=== PATIENT | female | born 1990 | race Caucasian/White ===

== ENCOUNTER 2017-12-24 07:12 | Emergency (ER) | payer OTHER, MEDICAID ==
[~2017-12-24] VITALS: Ht 160 cm; Wt 72.6 kg
[~2017-12-24 07:12] MED LIST: ? CHOLESTEROL MED PO; AFRIN15 ML NS; AUGMENTIN 875875 MG PO; CIPROFLOXACIN500 M1 PO; CYMBALTA60 MG; DIFLUCAN150 MG PO; DOXYCYCLINE 10100 MG PO; ESTROGEN; FLAGYL500 MG PO; HYDROCODON-ACE1 EAC7; HYDROCODONE-AP1 EAC6 PO; IBUPROFEN 800800 M1; IBUPROFEN 800800 M1 PO; KEFLEX500 M1; LOVASTAT20; NAPROSYN500 MG; NAPROSYN500 MG PO; NOHOMEMEDICATIONS; NORCO 5-325 TA1 EACH PO; ONDANSETRON HCL4 M2 PO; PERCOCET; PERCOCET 5-3251 EACH PO; PREDNISONE 20 M20 M1 PO; PROMETHAZINE-D120 ML PO; PYRIDIUM200 MG PO; TORADOL 10 MG T10 MG PO; TRICOR145 MG; VALIUM5 MG; VICODIN 5-5001 EACH; ZOFRAN 4 MG ORAL4 MG PO; ZOFRAN ODT4 MG PO; ZOFRAN4 MG PO
[2017-12-24] MEDS ORDERED: FLEXERIL PO (07:35)
[2017-12-24] MEDS ORDERED: NORCO 5-325 TA1 EACH PO (07:35)
[2017-12-24] MEDS ORDERED: IBUPROFEN 800800 M1 PO (07:35)
[2017-12-24 07:58] VITALS: BP 103/70
== END 2017-12-24 07:58 | disposition home or self-care (01) ==
LOC: M.ERS 07:12
DX: S46.812A Strain of other muscles, fascia and tendons at shoulder and upper arm level, left arm, initial encounter (principal); F17.210 Nicotine dependence, cigarettes, uncomplicated; X58.XXXA Exposure to other specified factors, initial encounter; Y93.89 Activity, other specified; Y92.89 Other specified places as the place of occurrence of the external cause; Y99.8 Other external cause status

== ENCOUNTER 2018-03-07 09:09 | Emergency (ER) | payer OTHER, MEDICAID ==
[~2018-03-07] VITALS: Ht 160 cm; Wt 63.5 kg
[~2018-03-07 09:09] MED LIST changes: +FLEXERIL PO
[2018-03-07 09:40] LABS: URINE BLOOD NEGATIVE (Negative); URINE CLARITY CLEAR; URINE COLOR YELLOW; URINE GLUCOSE-RANDOM NEGATIVE (Negative); URINE KETONES NEGATIVE (Negative); URINE LEUKOCYTES NEGATIVE (Negative); URINE NITRITE NEGATIVE (Negative); URINE PROTEIN TRACE (Negative); URINE SPECIFIC GRAVITY >= 1.030 (1.005-1.030); URINE UROBILINOGEN 0.2 E.U./dl (0.2-1.0)
[2018-03-07 09:45] LABS: ICTOTEST (BILI CONFIRMATORY) Negative (Negative); URINE BILIRUBIN 1+ (Negative)
[2018-03-07 09:47] LABS: ABSOLUTE BASOPHILS 0.1 thou/uL (0.0-0.2); ABSOLUTE EOSINOPHILS 0.1 thou/uL (0.0-0.7); ABSOLUTE LYMPHOCYTES 1.8 thou/uL (0.8-5.3); ABSOLUTE MONOCYTES 0.5 thou/uL (0.0-1.2); BASOPHILS 0.8 %; EOSINOPHILS 1.8 %; HEMATOCRIT 41.8 % (37.0-47.0); HEMOGLOBIN 14.2 gm/dL (12.0-15.0); LYMPHOCYTES 23.8 %; MCH 30.3 pg (26.0-34.0); MONOCYTES 6.7 %; MPV 8.3 fl. (7.2-11.1); NUCLEATED RBCS 0 /100WBC; PLATELET COUNT* 239 thou/uL (150-400); POLYS 66.9 %; RBC 4.69 mil/uL (4.20-5.00); RDW-CV 13.3 % (10.5-14.5); WBC 7.5 thou/uL (4.0-11.0)
[2018-03-07 09:53] LABS: AMP/METHAMP Negative (Negative); BARBITURATES Negative (Negative); BENZODIAZEPINES Negative (Negative); COCAINE Negative (Negative); METHADONE Negative (Negative); OPIATES Negative (Negative); PCP Negative (Negative); THC POSITIVE (Negative)
[2018-03-07 09:56] LABS: CALCIUM 9.1 mg/dL (8.5-10.1); POTASSIUM 3.6 mmol/L (3.5-5.1)
[2018-03-07 10:01] LABS: ALBUMIN 3.8 g/dL (3.4-5.0); TOTAL BILIRUBIN 0.2 mg/dL (<0.1-1.0); TOTAL PROTEIN 6.9 g/dL (6.4-8.2)
[2018-03-07] MEDS ORDERED: ZOFRAN4 MG PO (11:01)
[2018-03-07] MEDS ORDERED: ULTRAM 50MG TAB50 MG PO (11:07)
[2018-03-07 11:26] VITALS: BP 108/73
== END 2018-03-07 11:28 | disposition home or self-care (01) ==
LOC: M.ERS 09:09
PROVIDERS: Family Medicine
DX: R10.11 Right upper quadrant pain (principal); Z85.41 Personal history of malignant neoplasm of cervix uteri; Z90.49 Acquired absence of other specified parts of digestive tract; Z90.710 Acquired absence of both cervix and uterus; Z86.14 Personal history of Methicillin resistant Staphylococcus aureus infection

== ENCOUNTER 2018-05-26 10:06 | Emergency (ER) | payer OTHER, MEDICAID ==
[~2018-05-26] VITALS: Ht 160 cm; Wt 59.0 kg
[~2018-05-26 10:06] MED LIST changes: +ULTRAM 50MG TAB50 MG PO
[2018-05-26] MEDS ORDERED: PROZAC20 MG PO (10:17)
[2018-05-26] MEDS ORDERED: HYDROXYZINE HCL25 M1 PO (10:18)
[2018-05-26] MEDS ORDERED: PROAIR HFA8.5 GM INH (11:25)
[2018-05-26] MEDS ORDERED: TESSALON PERLE100 MG PO (11:25)
[2018-05-26 11:33] VITALS: BP 118/74
== END 2018-05-26 11:34 | disposition home or self-care (01) ==
LOC: M.ERS 10:06
DX: J98.8 Other specified respiratory disorders (principal); B97.89 Other viral agents as the cause of diseases classified elsewhere; Z85.41 Personal history of malignant neoplasm of cervix uteri; F17.210 Nicotine dependence, cigarettes, uncomplicated; Z86.14 Personal history of Methicillin resistant Staphylococcus aureus infection

== ENCOUNTER 2018-08-17 03:19 | Emergency (ER) | payer OTHER, MEDICAID ==
[~2018-08-17] VITALS: Ht 160 cm; Wt 56.7 kg
[~2018-08-17 03:19] MED LIST changes: +HYDROXYZINE HCL25 M1 PO; +PROAIR HFA8.5 GM INH; +PROZAC20 MG PO; +TESSALON PERLE100 MG PO
[2018-08-17 04:04] LABS: ABSOLUTE EOSINOPHILS 0.3 thou/uL (0.0-0.7); ABSOLUTE LYMPHOCYTES 2.8 thou/uL (0.8-5.3); ABSOLUTE MONOCYTES 0.7 thou/uL (0.0-1.2); ABSOLUTE NEUTROPHILS 3.6 thou/uL (1.6-8.1); BASOPHILS 0.6 %; EOSINOPHILS 3.7 %; HEMATOCRIT 37.8 % (37.0-47.0); HEMOGLOBIN 13.1 gm/dL (12.0-15.0); MCH 30.7 pg (26.0-34.0); MCHC 34.6 g/dL (28.0-37.0); MCV 88.6 fL (80.0-100.0); MONOCYTES 9.8 %; MPV 7.4 fl. (7.2-11.1); NUCLEATED RBCS 0 /100WBC; PLATELET COUNT* 180 thou/uL (150-400); POLYS 47.9 %; RBC 4.26 mil/uL (4.20-5.00); RDW-CV 12.7 % (10.5-14.5); WBC 7.5 thou/uL (4.0-11.0)
[2018-08-17 04:10] LABS: ANION GAP 7 mmol/L (7-16); BUN 10 mg/dL (7-18); CALCIUM 8.5 mg/dL (8.5-10.1); CHLORIDE 103 mmol/L (98-107); CO2 29 mmol/L (21-32); CREATININE 1.1 mg/dL (0.6-1.3); GLUCOSE 94 mg/dL (70-99); POTASSIUM 3.7 mmol/L (3.5-5.1); SODIUM 139 mmol/L (136-145)
[2018-08-17 04:14] LABS: PROTIME 10.7 Seconds (9.20-11.50)
[2018-08-17 04:20] LABS: ALBUMIN 2.8 g/dL (3.4-5.0); ALKALINE PHOSPHATASE 200 U/L (46-116); LIPASE 113 U/L (73-393); NT-PRO BRAIN NAT PEPTIDE 28 pg/mL (<300); SGOT 40 U/L (15-37); SGPT 46 U/L (30-65); TOTAL BILIRUBIN 0.2 mg/dL (<0.1-1.0); TROPONIN-I LEVEL <0.06 ng/mL (<0.06)
[2018-08-17] MEDS ORDERED: IBUPROFEN 800800 MG PO (05:00)
[2018-08-17] MEDS ORDERED: TUSSIONEX PENN115 ML PO (05:00)
[2018-08-17] MEDS ORDERED: AZITHROMYCIN 2250 MG PO (05:00)
[2018-08-17 05:06] VITALS: BP 103/67
--- NOTE | 2018-08-17 16:17 | EKG ---
[place] [address] ELECTROCARDIOGRAM REPORT Name: EMERSON RENEE Room: [facility]#: [id number] Admission: 08/17/18 Attend Phys: Discharge: 08/17/18 Date of : [birth year] Report #: [id number] THIS REPORT FOR: //name// [facility] ED Test Date: 2018-08-17 Test Time: 03:24:22 Pat Name: EMERSON RENEE Department: Room: Gender: F Heart Coordinator: FAITH : 1990 Requested By: Anthony Silverman Order Number: [id number] MD: Jesus Parikh Measurements Intervals [place] Rate: 99 P: 54 AR: 138 QRS: 56 QRSD: 84 T: 32 QT: 352 QTc: 452 Interpretive Statements Sinus rhythm Borderline T abnormalities, inferior leads Baseline wander in lead(s) II,III,aVL,aVF,V3,V4,V5,V6 No previous ECG available for comparison Electronically Signed On 08-17-2018 16:17:50 CHILD'S NURSE by Jesus Parikh [email or web address] <ELECTRONICALLY SIGNED> By: Jesus Parikh MD, [facility] 08/17/18 1617 [id number] Jesus Parikh MD, [facility] /EPI
== END 2018-08-17 05:09 | disposition home or self-care (01) ==
LOC: M.ERS 03:19
PROVIDERS: Emergency Medicine
DX: J40 Bronchitis, not specified as acute or chronic (principal); F41.9 Anxiety disorder, unspecified; Z85.41 Personal history of malignant neoplasm of cervix uteri; Z90.49 Acquired absence of other specified parts of digestive tract; Z90.710 Acquired absence of both cervix and uterus; F17.210 Nicotine dependence, cigarettes, uncomplicated

== ENCOUNTER 2019-03-26 14:08 | Emergency (ER) | payer OTHER ==
[~2019-03-26] VITALS: Ht 160 cm; Wt 50.8 kg
[~2019-03-26 14:08] MED LIST changes: +AZITHROMYCIN 2250 MG PO; +IBUPROFEN 800800 MG PO; +TUSSIONEX PENN115 ML PO
[2019-03-26] MEDS ORDERED: NORCO 5-325 TA1 EAC1 PO (15:00)
[2019-03-26 15:18] VITALS: BP 108/81
== END 2019-03-26 15:19 | disposition home or self-care (01) ==
LOC: M.ERS 14:08
DX: S93.402A Sprain of unspecified ligament of left ankle, initial encounter (principal); X58.XXXA Exposure to other specified factors, initial encounter; Y93.89 Activity, other specified; Y92.89 Other specified places as the place of occurrence of the external cause; Y99.8 Other external cause status; Z90.49 Acquired absence of other specified parts of digestive tract; Z90.710 Acquired absence of both cervix and uterus; F17.210 Nicotine dependence, cigarettes, uncomplicated

== ENCOUNTER 2019-08-10 18:00 | Emergency (ER) | payer OTHER ==
[~2019-08-10] VITALS: Ht 172 cm; Wt 59.0 kg
[~2019-08-10 18:00] MED LIST changes: +NORCO 5-325 TA1 EAC1 PO
[2019-08-10 18:30] LABS: URINE BILIRUBIN NEGATIVE (Negative); URINE BLOOD NEGATIVE (Negative); URINE CLARITY CLEAR; URINE COLOR YELLOW; URINE GLUCOSE-RANDOM NEGATIVE (Negative); URINE KETONES NEGATIVE (Negative); URINE LEUKOCYTES-REFLEX 1+ (Negative); URINE NITRITE-REFLEX NEGATIVE (Negative); URINE PROTEIN NEGATIVE (Negative); URINE UROBILINOGEN 0.2 E.U./dl (0.2-1.0)
[2019-08-10 18:38] LABS: BACTERIA-REFLEX 1-9 Few /HPF (None Seen); CASTS None Seen /LPF (None Seen); MUCUS None Seen strn/LPF (None Seen); SQUAMOUS >10 Many /LPF (0-3); URINE WBC-REFLEX 0-5 Rare /HPF (0-5)
[2019-08-10 18:39] LABS: CRYSTALS None Seen /LPF (None Seen); URINE RBC 0-2 Rare /HPF (0-2)
[2019-08-10 19:05] LABS: ABSOLUTE BASOPHILS 0.1 thou/uL (0.0-0.2); ABSOLUTE EOSINOPHILS 0.1 thou/uL (0.0-0.7); ABSOLUTE LYMPHOCYTES 3.1 thou/uL (0.8-5.3); ABSOLUTE MONOCYTES 0.5 thou/uL (0.0-1.2); ABSOLUTE NEUTROPHILS 6.6 thou/uL (1.6-8.1); BASOPHILS 0.6 %; EOSINOPHILS 0.7 %; HEMATOCRIT 38.4 % (37.0-47.0); HEMOGLOBIN 13.4 gm/dL (12.0-15.0); LYMPHOCYTES 29.9 %; MCH 31.8 pg (26.0-34.0); MONOCYTES 4.7 %; MPV 7.1 fl. (7.2-11.1); NUCLEATED RBCS 0 /100WBC; PLATELET COUNT* 234 thou/uL (150-400); POLYS 64.1 %; RBC 4.22 mil/uL (4.20-5.00); RDW-CV 12.5 % (10.5-14.5); WBC 10.3 thou/uL (4.0-11.0)
[2019-08-10 19:12] LABS: CALCIUM 9.1 mg/dL (8.5-10.1); CREATININE 1.3 mg/dL (0.6-1.3); POTASSIUM 3.5 mmol/L (3.5-5.1)
[2019-08-10 19:16] LABS: ALBUMIN 3.6 g/dL (3.4-5.0); TOTAL BILIRUBIN 0.2 mg/dL (<0.1-1.0); TOTAL PROTEIN 6.9 g/dL (6.4-8.2)
[2019-08-10] MEDS ORDERED: MIRALAX119 GM PO (20:19)
[2019-08-10] MEDS ORDERED: CITRATE OF MAG296 ML PO (20:19)
[2019-08-10] MEDS ORDERED: TORADOL 10 MG T10 MG PO (20:20)
[2019-08-10 20:44] VITALS: BP 92/52
== END 2019-08-10 20:46 | disposition home or self-care (01) ==
LOC: M.ERS 18:00
PROVIDERS: Physician Assistant
DX: K59.00 Constipation, unspecified (principal); R10.84 Generalized abdominal pain; F17.210 Nicotine dependence, cigarettes, uncomplicated; Z90.49 Acquired absence of other specified parts of digestive tract; Z90.710 Acquired absence of both cervix and uterus; Z85.41 Personal history of malignant neoplasm of cervix uteri

== ENCOUNTER 2019-08-12 01:46 | Emergency (ER) | payer OTHER ==
[~2019-08-12] VITALS: Ht 160 cm; Wt 59.0 kg
[~2019-08-12 01:46] MED LIST changes: +CITRATE OF MAG296 ML PO; +MIRALAX119 GM PO
[2019-08-12] MEDS ORDERED: ZOFRAN ODT4 MG PO (02:32)
[2019-08-12 02:38] VITALS: BP 106/62
== END 2019-08-12 02:38 | disposition home or self-care (01) ==
LOC: M.ERS 01:46
DX: G43.909 Migraine, unspecified, not intractable, without status migrainosus (principal); R11.2 Nausea with vomiting, unspecified; E78.00 Pure hypercholesterolemia, unspecified; F17.210 Nicotine dependence, cigarettes, uncomplicated; Z90.49 Acquired absence of other specified parts of digestive tract; Z90.710 Acquired absence of both cervix and uterus; Z85.41 Personal history of malignant neoplasm of cervix uteri